=== PATIENT | male | born 2005 | race African-American/Black ===

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

== ENCOUNTER 2023-04-24 18:46 | Emergency (ER) | payer OTHER ==
[2023-04-24 19:39] VITALS: BP 140/80; PULSE 80; RESP 19; TEMP 98.7; BMI 52.7
[2023-04-24] MEDS ORDERED: ACETAMINOPHEN 325 MG TABLET (FP) PO ONE (19:40)
[2023-04-24] MEDS ORDERED: ACETAMINOPHEN 325 MG TABLET (FP) ONE (19:45)
[2023-04-24 20:10] LABS: HEMATOCRIT 35.8 % (35.4-49); HEMOGLOBIN 11.3 G/dL (11.7-16.9); MCH 23.1 pg (25.7-33.7); MCHC 31.6 g/dl (32.0-35.9); MEAN CELL VOLUME 73.3 fl (80-96); MEAN PLT VOLUME 7.8 fl (7.5-11.1); PLATELET COUNT 294.7 10^3/uL (134-434); RBC 4.89 10^6/uL (4.00-5.60); RDW 18.1 % (11.9-15.9); WHITE BLOOD COUNT 8.8 10^3/uL (4.0-10.8)
[2023-04-24 20:37] LABS: ALBUMIN 3.9 g/dl (3.4-5.0); BILIRUBIN,TOTAL 0.2 mg/dl (0.2-1); CALCIUM 9.1 mg/dl (8.5-10.1); CREATININE 0.7 mg/dl (0.6-1.3); POTASSIUM 3.7 mmol/L (3.5-5.1)
[2023-04-24 20:57] LABS: PLATELET ESTIMATE ADEQUATE
== END 2023-04-24 22:08 | disposition home or self-care (01) ==
LOC: FER 18:46
DX: R10.84 Generalized abdominal pain (principal)
CPT/HCPCS: 36415; 80053; 81003; 85027; 99283-25

== ENCOUNTER 2024-04-17 17:44 | Emergency (ER) | payer OTHER ==
[2024-04-17 17:51] VITALS: BP 173/55; PULSE 85; RESP 18; TEMP 97.3; BMI 55.5
[2024-04-17] MEDS ORDERED: BACITRACIN ZINC 15 GM TUBE TOPICAL OINTMENT ONE (18:38)
[2024-04-17] MEDS ORDERED: CEPHALEXIN MONOHYDRATE 500 MG CAPSULE (UD) ONE (18:38)
[2024-04-17] MEDS: CEPHALEXIN MONOHYDRATE 500 MG CAPSULE (UD) PO ONE (18:40)
[2024-04-17] MEDS: BACITRACIN 0.9 GM PACKET TP ONE (18:40)
== END 2024-04-17 19:05 | disposition home or self-care (01) ==
LOC: JER 17:44
DX: T24.211A Burn of second degree of right thigh, initial encounter (principal); X12.XXXA Contact with other hot fluids, initial encounter
CPT/HCPCS: 99283-25

== ENCOUNTER 2024-04-21 16:25 | Emergency (ER) | payer OTHER ==
[2024-04-21 16:31] VITALS: BP 106/57; PULSE 90; RESP 20; TEMP 97.9; BMI 59.3
== END 2024-04-21 18:13 | disposition home or self-care (01) ==
LOC: JERFT 16:25
DX: Z48.01 Encounter for change or removal of surgical wound dressing (principal); T24.211D Burn of second degree of right thigh, subsequent encounter
CPT/HCPCS: 99281-25